=== PATIENT | male | born 1935 | race Caucasian/White ===

== ENCOUNTER 2016-10-29 15:35 | Emergency (ER) | payer OTHER ==
[~2016-10-29] VITALS: Ht 188 cm; Wt 63.2 kg
[2016-10-29 15:36] VITALS: BP 162/94
[2016-10-29] MEDS ORDERED: HYDROcodone/APAP 5/325 TABLET PO ONE (17:00)
[2016-10-29] MEDS ORDERED: HYDROcodone/APAP 5/325 TABLET ONE (17:11)
[2016-10-29] MEDS ORDERED: VALACYCLOVIR 500MG TABLET PO ONE (18:00)
== END 2016-10-29 18:01 | disposition home or self-care (01) ==
LOC: ED 17:55
DX: B02.9 Zoster without complications (principal); K21.9 Gastro-esophageal reflux disease without esophagitis; Z87.891 Personal history of nicotine dependence
CPT/HCPCS: 72190; 74020; 99284

== ENCOUNTER 2017-10-03 11:19 | Inpatient (IN) | payer OTHER ==
[~2017-10-03] VITALS: Ht 190.5 cm; Wt 65.2 kg
[2017-10-03] MEDS ORDERED: SODIUM CHLORIDE 0.9% 1,000 ML IV ONE ×3 (11:53→13:25)
[2017-10-03] MEDS ORDERED: ONDANSETRON ODT 4 MG PO ONE (12:00)
[2017-10-03] MEDS ORDERED: MORPHINE SULFATE 4 MG/ML, 1ML IVPush PRN (12:00)
[2017-10-03] MEDS ORDERED: SODIUM CHLORIDE 0.9% 1,000ML IVBOLUS ONE (12:00)
[2017-10-03] MEDS ORDERED: SODIUM CHLORIDE FLUSH 10ML SYR IVF ONE (12:00)
[2017-10-03 12:18] LABS: MICROSCOPIC INDICATED
[2017-10-03 12:20] LABS: CULTURE INDICATED? YES
[2017-10-03] MEDS ORDERED: MORPHINE SULFATE 4 MG/ML, 1ML ONE (12:27)
[2017-10-03] MEDS ORDERED: ONDANSETRON ODT 4 MG ONE (12:27)
[2017-10-03 12:32] LABS: BASOPHILS # (AUTO) 0.03 x10^3/uL (0-0.1); BASOPHILS % (AUTO) 0 % (0-1); EOSINOPHILS # (AUTO) 0.02 x10^3/uL (0-0.4); EOSINOPHILS % (AUTO) 0 % (1-7); LYMPHOCYTES # (AUTO) 1.52 x10^3/uL (1-3.4); LYMPHOCYTES % (AUTO) 18 % (22-44); MD NO; MEAN CORPUSCULAR HEMOGLOBIN 31.3 pg (27.5-34.5); MEAN CORPUSCULAR HGB CONC 33.3 g/dL (33.2-36.2); MONOCYTES # (AUTO) 0.41 x10^3/uL (0.2-0.8); MONOCYTES % (AUTO) 5 % (2-9); NEUTROPHILS # (AUTO) 6.27 x10^3/uL (1.8-6.8); NEUTROPHILS % (AUTO) 76 % (42-75); PLATELET COUNT 179 x10^3/uL (130-400); RED BLOOD COUNT 5.14 x10^6/uL (4.38-5.82)
[2017-10-03 12:37] LABS: INTERNATIONAL NORMALIZED RATIO 0.96 (0.93-1.1); PROTHROMBIN TIME 9.9 Seconds (9.6-11.5)
[2017-10-03 12:41] LABS: ALANINE AMINOTRANSFERASE 19 U/L (12-78); ALBUMIN 3.8 g/dL (3.4-5.0); ANION GAP 9 mmol/L (5-15); CALCIUM 8.8 mg/dL (8.5-10.1); CHLORIDE 100 mmol/L (98-107); CREATININE 1.04 mg/dL (0.7-1.3)
[2017-10-03 12:43] LABS: ALKALINE PHOSPHATASE 92 U/L (45-117); BILIRUBIN,TOTAL 0.6 mg/dL (0.2-1.0); TOTAL PROTEIN 7.2 g/dL (6.4-8.2)
[2017-10-03] MEDS ORDERED: SODIUM CHLORIDE FLUSH 10ML SYR IVF PRN (13:30)
[2017-10-03] MEDS ORDERED: ENALAPRILAT 1.25 MG/ML, 2ML IVPush PRN (14:30)
[2017-10-03] MEDS ORDERED: ONDANSETRON ODT 4 MG PO PRN (14:30)
[2017-10-03] MEDS ORDERED: LABETALOL 5MG/ML, 20ML IVPush PRN (14:30)
[2017-10-03] MEDS ORDERED: ACETAMINOPHEN 325 MG TABLET PO PRN (14:30)
[2017-10-03] MEDS ORDERED: DOCUSATE 100 MG CAPSULE PO PRN (14:30)
[2017-10-03 15:08] VITALS: BP 143/79
[2017-10-03] MEDS ORDERED: morphine SULFATE 10 MG/ML, 1ML IVPush PRN (15:30)
[2017-10-03] MEDS ORDERED: TAMSULOSIN 0.4 MG CAP.ER.24H PO ONE (16:00)
[2017-10-03] MEDS: HYDROcodone/APAP 5/325 TABLET PO PRN ×2 (16:56→20:58)
[2017-10-03 19:07] VITALS: BP 117/76
[2017-10-04 01:28] VITALS: BP 133/74
[2017-10-04 05:07] LABS: BASOPHILS # (AUTO) 0.01 x10^3/uL (0-0.1); BASOPHILS % (AUTO) 0 % (0-1); EOSINOPHILS % (AUTO) 0 % (1-7); LYMPHOCYTES # (AUTO) 0.49 x10^3/uL (1-3.4); LYMPHOCYTES % (AUTO) 6 % (22-44); MD NO; MEAN CORPUSCULAR HGB CONC 33.3 g/dL (33.2-36.2); MEAN CORPUSCULAR VOLUME 93.3 fL (81-97); MEAN PLATELET VOLUME 7.1 fL (7.4-10.4); MONOCYTES # (AUTO) 0.31 x10^3/uL (0.2-0.8); MONOCYTES % (AUTO) 4 % (2-9); NEUTROPHILS # (AUTO) 7.28 x10^3/uL (1.8-6.8); NEUTROPHILS % (AUTO) 90 % (42-75); PLATELET COUNT 146 x10^3/uL (130-400); RED BLOOD COUNT 4.24 x10^6/uL (4.38-5.82); RED CELL DISTRIBUTION WIDTH 15.1 % (9.4-14.8)
[2017-10-04 05:23] LABS: CHLORIDE 104 mmol/L (98-107)
[2017-10-04 05:36] LABS: ANION GAP 7 mmol/L (5-15); CALCIUM 8.6 mg/dL (8.5-10.1); CREATININE 0.95 mg/dL (0.7-1.3)
[2017-10-04] MEDS: HYDROcodone/APAP 5/325 TABLET PO PRN ×2 (06:10→20:39)
[2017-10-04 06:58] VITALS: BP 125/73
[2017-10-04] MEDS: TAMSULOSIN 0.4 MG CAP.ER.24H PO SCH (08:15)
[2017-10-04 12:17] VITALS: BP 148/85
[2017-10-04] MEDS ORDERED: POLYETHYLENE GLYCOL 17 GM PACKET PO SCH (13:00)
[2017-10-04] MEDS: POLYETHYLENE GLYCOL 17 GM PACKET PO SCH ×3 (16:24→23:00)
[2017-10-04 19:21] VITALS: BP 133/68
[2017-10-05 02:00] VITALS: BP 130/71
[2017-10-05] MEDS: POLYETHYLENE GLYCOL 17 GM PACKET PO SCH ×4 (03:00→15:00)
[2017-10-05] MEDS: HYDROcodone/APAP 5/325 TABLET PO PRN (04:25)
[2017-10-05 06:56] VITALS: BP 130/69
[2017-10-05] MEDS: TAMSULOSIN 0.4 MG CAP.ER.24H PO SCH (09:25)
[2017-10-05] MEDS ORDERED: POLY17PO5 PO ×2 (12:08→15:45)
[2017-10-05] MEDS ORDERED: TAMS-11 PO (12:08)
[2017-10-05] MEDS ORDERED: ACET325T14 PO (12:08)
[2017-10-05 12:53] VITALS: BP 138/84
== END 2017-10-05 16:00 | disposition home or self-care (01) | DRG 695 ==
LOC: ED 12:00 → OBSVTOIN 13:25 → INTOOBSV 13:25 → EDIP 13:25 → 3NE 14:58 → DCLOUNGE 10-05 15:40
PROVIDERS: ADMIT Family Medicine; ATTEND Family Medicine
DX: R31.0 Gross hematuria (principal); J15.9 Unspecified bacterial pneumonia; J43.9 Emphysema, unspecified; R33.9 Retention of urine, unspecified; M54.9 Dorsalgia, unspecified; H91.90 Unspecified hearing loss, unspecified ear; I25.10 Atherosclerotic heart disease of native coronary artery without angina pectoris; K21.9 Gastro-esophageal reflux disease without esophagitis; K40.90 Unilateral inguinal hernia, without obstruction or gangrene, not specified as recurrent; K56.41 Fecal impaction; N40.1 Benign prostatic hyperplasia with lower urinary tract symptoms; Z87.891 Personal history of nicotine dependence; Z90.79 Acquired absence of other genital organ(s)
CPT/HCPCS: 36415; 74176; 80048; 80053; 81001; 83605; 83690; 85025; 85610; 85730; 87040; 87086; 93005; Q0162; J2270; J7030

== ENCOUNTER 2017-11-19 14:03 | Inpatient (IN) | payer OTHER ==
[~2017-11-19] VITALS: Ht 190.5 cm; Wt 59.6 kg
[~2017-11-19 14:03] MED LIST: ACET325T14 PO; POLY17PO5 PO; TAMS-11 PO
[2017-11-19] MEDS ORDERED: SODIUM CHLORIDE 0.9% 1,000 ML IV ONE ×2 (14:30→18:41)
[2017-11-19] MEDS ORDERED: SODIUM CHLORIDE FLUSH 10ML SYR IVF ONE (14:30)
[2017-11-19 15:07] LABS: BASOPHILS # (AUTO) 0.02 x10^3/uL (0-0.1); BASOPHILS % (AUTO) 0 % (0-1); EOSINOPHILS # (AUTO) 0.02 x10^3/uL (0-0.4); EOSINOPHILS % (AUTO) 0 % (1-7); LYMPHOCYTES # (AUTO) 1.09 x10^3/uL (1-3.4); LYMPHOCYTES % (AUTO) 9 % (22-44); MD NO; MEAN CORPUSCULAR HEMOGLOBIN 30.6 pg (27.5-34.5); MEAN CORPUSCULAR HGB CONC 32.7 g/dL (33.2-36.2); MEAN CORPUSCULAR VOLUME 93.5 fL (81-97); MEAN PLATELET VOLUME 7.8 fL (7.4-10.4); MONOCYTES # (AUTO) 0.53 x10^3/uL (0.2-0.8); MONOCYTES % (AUTO) 4 % (2-9); NEUTROPHILS # (AUTO) 10.64 x10^3/uL (1.8-6.8); NEUTROPHILS % (AUTO) 87 % (42-75); PLATELET COUNT 195 x10^3/uL (130-400); RED BLOOD COUNT 5.43 x10^6/uL (4.38-5.82); RED CELL DISTRIBUTION WIDTH 14.9 % (9.4-14.8)
[2017-11-19 15:18] LABS: ALANINE AMINOTRANSFERASE 18 U/L (12-78); ALBUMIN 3.6 g/dL (3.4-5.0); ANION GAP 10 mmol/L (5-15); CALCIUM 9.7 mg/dL (8.5-10.1); CHLORIDE 103 mmol/L (98-107); CREATININE 1.21 mg/dL (0.7-1.3)
[2017-11-19 15:20] LABS: ALKALINE PHOSPHATASE 89 U/L (45-117); BILIRUBIN,TOTAL 0.8 mg/dL (0.2-1.0); TOTAL PROTEIN 7.1 g/dL (6.4-8.2)
[2017-11-19] MEDS ORDERED: ONDANSETRON ODT 4 MG PO ONE (15:30)
[2017-11-19] MEDS ORDERED: ONDANSETRON ODT 4 MG ONE (16:58)
[2017-11-19] MEDS ORDERED: OMNIPAQUE 350 MG/ML, 100ML BOTTLE ONE (18:00)
[2017-11-19] MEDS ORDERED: SODIUM CHLORIDE FLUSH 10ML SYR IVF PRN (19:00)
[2017-11-19] MEDS ORDERED: ONDANSETRON 2MG/ML, 2ML ONE (19:50)
[2017-11-19] MEDS ORDERED: hydrALAzine 20 MG/ML, 1ML IV PRN (20:00)
[2017-11-19] MEDS ORDERED: PINK LADY ENEMA 1,000 ML PR PRN (20:00)
[2017-11-19] MEDS ORDERED: ENALAPRILAT 1.25 MG/ML, 2ML IV PRN (20:00)
[2017-11-19] MEDS ORDERED: ONDANSETRON ODT 4 MG PO PRN (20:00)
[2017-11-19] MEDS ORDERED: METOCLOPRAMIDE 5 MG/ML, 2ML IVPush PRN (20:00)
[2017-11-19] MEDS ORDERED: ONDANSETRON 2MG/ML, 2ML IVPush PRN (20:00)
[2017-11-19] MEDS ORDERED: ENOXAPARIN 40 MG/0.4 ML SQ SCH (20:00)
[2017-11-19 20:35] VITALS: BP 92/61
[2017-11-19] MEDS: SENNA/DOCUSATE TABLET PO SCH (21:07)
[2017-11-19] MEDS: LACTATED RINGERS 1,000 ML IV SCH (21:16)
[2017-11-20 02:19] LABS: CULTURE INDICATED? YES; MICROSCOPIC INDICATED
[2017-11-20 04:28] VITALS: BP 136/77
[2017-11-20 05:38] LABS: BASOPHILS % (AUTO) 0 % (0-1); EOSINOPHILS % (AUTO) 0 % (1-7); LYMPHOCYTES # (AUTO) 0.62 x10^3/uL (1-3.4); LYMPHOCYTES % (AUTO) 6 % (22-44); MD NO; MEAN CORPUSCULAR HGB CONC 32.9 g/dL (33.2-36.2); MEAN CORPUSCULAR VOLUME 94.3 fL (81-97); MONOCYTES # (AUTO) 0.51 x10^3/uL (0.2-0.8); MONOCYTES % (AUTO) 5 % (2-9); NEUTROPHILS # (AUTO) 9.81 x10^3/uL (1.8-6.8); NEUTROPHILS % (AUTO) 90 % (42-75); PLATELET COUNT 156 x10^3/uL (130-400); RED BLOOD COUNT 4.67 x10^6/uL (4.38-5.82); RED CELL DISTRIBUTION WIDTH 14.9 % (9.4-14.8)
[2017-11-20 05:45] LABS: ANION GAP 8 mmol/L (5-15); CALCIUM 9.1 mg/dL (8.5-10.1); CHLORIDE 106 mmol/L (98-107)
[2017-11-20 05:49] LABS: ALANINE AMINOTRANSFERASE 16 U/L (12-78); ALKALINE PHOSPHATASE 74 U/L (45-117); CREATININE 1.37 mg/dL (0.7-1.3); TOTAL PROTEIN 6.1 g/dL (6.4-8.2)
[2017-11-20] MEDS ORDERED: PROPOFOL 10 MG/ML, 20ML ONE (07:06)
[2017-11-20] MEDS ORDERED: LIDOCAINE-MPF 2% ,5ML ONE (07:06)
[2017-11-20] MEDS ORDERED: FENTANYL PF 100 MCG/2ML ONE (07:47)
[2017-11-20] MEDS: SENNA/DOCUSATE TABLET PO SCH ×2 (08:12→20:41)
[2017-11-20] MEDS ORDERED: FENTANYL PF 100 MCG/2ML IV PRN (08:30)
[2017-11-20] MEDS ORDERED: TAMSULOSIN 0.4 MG CAP.ER.24H PO SCH (09:00)
[2017-11-20] MEDS: KETOROLAC 30 MG/1 ML IM PRN (09:50)
[2017-11-20] MEDS: LACTATED RINGERS 1,000 ML IV SCH ×2 (11:53→20:35)
[2017-11-20] MEDS: MORPHINE SULFATE 4 MG/ML, 1ML IVPush PRN ×4 (13:15→20:34)
[2017-11-20 15:44] VITALS: BP 128/62
[2017-11-20 18:33] VITALS: BP 125/66
[2017-11-20] MEDS ORDERED: ENOXAPARIN 30 MG/0.3 ML SQ SCH (20:00)
[2017-11-20] MEDS ORDERED: ENOXAPARIN 40 MG/0.4 ML SQ SCH (20:00)
[2017-11-21 02:25] VITALS: BP 133/70
[2017-11-21] MEDS: LACTATED RINGERS 1,000 ML IV SCH ×2 (03:59→12:07)
[2017-11-21 05:09] LABS: ANION GAP 4 mmol/L (5-15); CALCIUM 8.7 mg/dL (8.5-10.1); CHLORIDE 109 mmol/L (98-107); CREATININE 1.33 mg/dL (0.7-1.3)
[2017-11-21] MEDS: MORPHINE SULFATE 4 MG/ML, 1ML IVPush PRN ×2 (06:48→12:00)
[2017-11-21 06:55] VITALS: BP 107/71
[2017-11-21 13:22] VITALS: BP 138/72
[2017-11-21] MEDS: morphine SULFATE ORAL.CONC 20 MG/ML PO PRN ×3 (16:20→23:49)
[2017-11-21 19:20] VITALS: BP 124/76
[2017-11-21] MEDS: ENOXAPARIN 40 MG/0.4 ML SQ SCH (23:43)
[2017-11-22 02:07] VITALS: BP 138/69
[2017-11-22] MEDS: KETOROLAC 30 MG/1 ML IM PRN (03:21)
[2017-11-22] MEDS: morphine SULFATE ORAL.CONC 20 MG/ML PO PRN ×3 (03:54→15:47)
[2017-11-22 06:57] VITALS: BP 102/54
[2017-11-22] MEDS ORDERED: ACETAMINOPHEN 650 MG/20.3 ML UDC PO PRN (07:00)
[2017-11-22 14:22] VITALS: BP 143/74
[2017-11-22 19:46] VITALS: BP 147/79
[2017-11-22] MEDS: ENOXAPARIN 40 MG/0.4 ML SQ SCH (20:00)
[2017-11-23 01:16] VITALS: BP 156/87
[2017-11-23 06:55] VITALS: BP 131/63
[2017-11-23] MEDS: morphine SULFATE ORAL.CONC 20 MG/ML PO PRN (09:40)
== END 2017-11-23 11:12 | disposition hospice, home (50) | DRG 374 ==
LOC: ED 18:40 → EDIP 18:41 → ED 18:43 → 4NOR 20:32
PROVIDERS: ADMIT Family Medicine; ATTEND Family Medicine
PROC: 0DC58ZZ Extirpation of Matter from Esophagus, Via Natural or Artificial Opening Endoscopic (ICD-10-PCS; 2017-11-20)
PROC: 0DB38ZX Excision of Lower Esophagus, Via Natural or Artificial Opening Endoscopic, Diagnostic (ICD-10-PCS; principal; 2017-11-20 07:30)
DX: C15.5 Malignant neoplasm of lower third of esophagus (principal); E43 Unspecified severe protein-calorie malnutrition; N17.0 Acute kidney failure with tubular necrosis; Z68.1 Body mass index [BMI] 19.9 or less, adult; T18.128A Food in esophagus causing other injury, initial encounter; K22.8 Other specified diseases of esophagus; D72.829 Elevated white blood cell count, unspecified; K29.70 Gastritis, unspecified, without bleeding; K59.00 Constipation, unspecified; Z87.891 Personal history of nicotine dependence; E86.0 Dehydration; G89.29 Other chronic pain; K21.9 Gastro-esophageal reflux disease without esophagitis; K44.9 Diaphragmatic hernia without obstruction or gangrene; N40.1 Benign prostatic hyperplasia with lower urinary tract symptoms; R13.10 Dysphagia, unspecified; Z51.5 Encounter for palliative care; Z66 Do not resuscitate; R33.9 Retention of urine, unspecified; X58.XXXA Exposure to other specified factors, initial encounter; Y93.89 Activity, other specified; Y92.89 Other specified places as the place of occurrence of the external cause; Y99.8 Other external cause status
CPT/HCPCS: 36415; 74022; 74177; 80048; 80053; 81001; 83690; 83735; 84100; 85025; 87086; 88305; 93005; 96360; 96361; J1650; J1885; J2405; J2704; J3010; J3490; Q0162; Q9967; J2765; J7030; J7120